=== PATIENT | female | born 1955 | race Hispanic/Latino ===

== ENCOUNTER 2021-09-10 14:04 | Outpatient (CLI) | payer MEDICAID ==
[2021-09-10 16:40] LABS: #Basophils 0.1 10x3/uL (0.0-0.2); #Eosinphils 0.3 10x3/uL (0.0-0.5); #Monocytes 0.5 10x3/uL (0.0-1.1); #Neutrophils 4.2 10x3/uL (1.5-8.4); %Basophils 0.7 % (0.0-2.0); %Eosinophils 3.9 % (0.0-6.0); %Lymphocytes 23.5 % (18.0-47.0); %Monocytes 7.5 % (0.0-10.0); %Neutrophils 63.2 % (40.0-75.0); Hemoglobin 13.4 g/dL (12.0-15.5); Mean Corpuscular HGB CONC 33.1 g/dL (32.0-36.0); Mean Corpuscular Hemoglobin 28.5 pg (27.0-33.0); Mean Corpuscular Volume 86.2 fl (81.6-98.3); Mean Platelet Volume 11.5 fl (7.4-10.4); Platelet Count 173 10x3/uL (150-450); White Blood Cell (WBC) Count 6.7 10x3/uL (3.5-10.5)
[2021-09-10 16:58] LABS: Anion Gap 17 mmol/L (10-20); BUN (Urea Nitrogen) 30 mg/dL (9.8-20.1); Calc. Creatinine Clearance 0 mL/min (70-130); Calcium 10.4 mg/dL (7.8-10.44); Carbon Dioxide 26 mmol/L (23-31); Chloride 96 mmol/L (98-107); Glucose 427 mg/dL (80-115); Potassium 4.2 mmol/L (3.5-5.1); Sodium 135 mmol/L (136-145)
[2021-09-11 00:13] LABS: SARS-CoV-2 PCR by NAA Not Detected (NotDetected)
== END 2021-09-10 14:05 | disposition home or self-care (01) ==
LOC: LABBT 14:04
PROVIDERS: ATTEND Specialist
DX: Z01.818 Encounter for other preprocedural examination (principal); C50.912 Malignant neoplasm of unspecified site of left female breast; Z20.822 Contact with and (suspected) exposure to COVID-19
CPT/HCPCS: 71046; 80048; 85025; U0003; U0005

== ENCOUNTER 2021-09-18 10:33 | Day surgery (SDC) | payer MEDICAID ==
[2021-09-08 14:08] VITALS: BMI 23.3
[2021-09-18] MEDS ORDERED: Acetaminophen 500 MG TAB ONE (11:17)
[2021-09-18] MEDS ORDERED: Lidocaine 1% MPF 2 ML VIAL ONE (11:27)
[2021-09-18] MEDS ORDERED: Ketorolac Tromethamine 30 MG/ML VIAL ONE (11:27)
[2021-09-18] MEDS ORDERED: Fentanyl 100 MCG/2 ML VIAL ONE ×2 (11:38→14:32)
[2021-09-18] MEDS ORDERED: Bupivacaine 0.25% 10 ML VIAL ONE (11:45)
[2021-09-18] MEDS ORDERED: Lidocaine 1% (PF) 30 ML VIAL ONE (11:45)
[2021-09-18] MEDS ORDERED: EPINEPHrine 1 MG/ML AMP ONE (11:45)
[2021-09-18] MEDS ORDERED: Isosulfan Blue 50 MG/5 ML VIAL ONE (12:23)
[2021-09-18] MEDS ORDERED: Methylene Blue 50 MG/10 ML AMPUL ONE (12:24)
[2021-09-18] MEDS ORDERED: Lidocaine 1% PF 5 ML VIAL ONE (13:15)
[2021-09-18] MEDS ORDERED: PROPOFOL 200 MG/20 ML VIAL ONE (13:15)
[2021-09-18] MEDS ORDERED: Ondansetron PF 4 MG/2 ML Vial ONE (13:15)
[2021-09-18] MEDS ORDERED: PHENYLEPHRINE-NS 100 MCG/ML 10 ML SYRINGE ONE (13:15)
== END 2021-09-18 16:05 | disposition home or self-care (01) ==
LOC: SDC 10:33
PROVIDERS: ATTEND Specialist
PROC: 02HV33Z Insertion of Infusion Device into Superior Vena Cava, Percutaneous Approach (ICD-10-PCS; principal; 2021-09-18)
PROC: 0JH60WZ Insertion of Totally Implantable Vascular Access Device into Chest Subcutaneous Tissue and Fascia, Open Approach (ICD-10-PCS; principal; 2021-09-18)
PROC: 07D63ZX Extraction of Left Axillary Lymphatic, Percutaneous Approach, Diagnostic (ICD-10-PCS; principal; 2021-09-18)
DX: C50.412 Malignant neoplasm of upper-outer quadrant of left female breast (principal); E78.00 Pure hypercholesterolemia, unspecified; E11.9 Type 2 diabetes mellitus without complications; I10 Essential (primary) hypertension; Z17.1 Estrogen receptor negative status [ER-]; Z79.4 Long term (current) use of insulin; Z79.83 Long term (current) use of bisphosphonates; Z79.84 Long term (current) use of oral hypoglycemic drugs; Z79.899 Other long term (current) drug therapy
CPT/HCPCS: 36416; 71045; 88305; 93005; 93010; C1788; J0171; J1642; J1885; J2001; J2405; J2704; J3010; Q9968; S0020

== ENCOUNTER 2021-12-02 12:03 | Inpatient (IN) | payer MEDICARE, MEDICAID ==
[2021-12-02 12:43] LABS: Mean Corpuscular Hemoglobin 31.2 pg (27.0-31.0); Mean Corpuscular Volume 91.9 fL (78.0-98.0); Mean Platelet Volume 7.6 fL (7.4-10.4); Platelet Count 174 thou/uL (130-400); RBC Distribution Width 18.3 % (11.5-14.5); Red Blood Cell (RBC) Count 3.51 mill/uL (4.20-5.40); White Blood Cell (WBC) Count 14.6 thou/uL (4.8-10.8)
[2021-12-02 13:02] LABS: Band 25 % (5-11); Lymphocytes 6 % (21-51); MDiff Complete? YES; Metamyelocyte 3 % (0-0); Monocytes 1 % (0-10); Neutrophil 65 % (42-75); Platelet Morphology Comment Appears Adequate; Polychromasia SLIGHT = 2-3 cells (100X) (0-2/hpf)
[2021-12-02 13:20] LABS: ALT (SGPT) 47 U/L (8-55); AST (SGOT) 47 U/L (5-34); Alkaline Phosphatase 118 U/L (40-110); Anion Gap 18 mmol/L (10-20); BUN (Urea Nitrogen) 37 mg/dL (9.8-20.1); Bilirubin, Total 0.5 mg/dL (0.2-1.2); Calc. Creatinine Clearance 0 mL/min (70-130); Calcium 8.6 mg/dL (7.8-10.44); Carbon Dioxide 14 mmol/L (23-31); Chloride 106 mmol/L (98-107); Estimated GFR 28; Globulin 2.7 g/dL (2.4-3.5); Glucose 144 mg/dL (80-115); Potassium 3.9 mmol/L (3.5-5.1); Protein, Total 6.7 g/dL (5.8-8.1); Sodium 134 mmol/L (136-145)
[2021-12-02 15:48] LABS: Bilirubin Negative (Negative); Blood, Urine Negative (Negative); Glucose, Urine (Dipstick) 30 mg/dL (Negative); Ketone, Urine Negative (Negative); Leukocyte Negative Leu/uL (Negative); Nitrite Negative (Negative); Protein, Urine (Dipstick) 10 mg/dL (Neg-Trace); Specific Gravity, Urine 1.012 (1.002-1.036); Urobilinogen Normal mg/dL (Less than 2)
[2021-12-02 15:49] LABS: Clarity Hazy (Clear)
[2021-12-02] MEDS ORDERED: Ketorolac Tromethamine 30 MG/ML VIAL ONE (16:18)
[2021-12-02] MEDS ORDERED: Acetaminophen 500 MG TAB ONE (16:19)
[2021-12-02] MEDS ORDERED: Cefepime 2 GM VIAL ONE (16:39)
[2021-12-02] MEDS ORDERED: Acetaminophen 325 MG TAB PO PRN (18:17)
[2021-12-02] MEDS ORDERED: Ondansetron PF 4 MG/2 ML Vial IVP PRN (18:17)
[2021-12-02] MEDS ORDERED: Acetaminophen 650 MG Suppository PR PRN (18:17)
[2021-12-02] MEDS ORDERED: Dextrose 5% in Water 1,000 ML IV PRN (18:22)
[2021-12-02] MEDS ORDERED: HumaLOG 300 UNITS/3 ML VIAL SC PRN (18:22)
[2021-12-02] MEDS ORDERED: Dextrose 50% Abboject 50 ML SYRINGE SLOW IVP PRN (18:22)
[2021-12-02] MEDS ORDERED: traMADol HCl 50 MG TAB PO PRN ×2 (18:25→20:15)
[2021-12-02 19:07] VITALS: BMI 19.5
[2021-12-02 19:15] LABS: SARS-CoV-2 NAA Rapid Test Not Detected (NotDetected)
[2021-12-02] MEDS ORDERED: Sodium Chloride 0.9% 500 ML IV SCH (20:15)
[2021-12-02] MEDS: Famotidine/PF 20 mg/2ml Vial SLOW IVP SCH (20:30)
[2021-12-02] MEDS: Heparin 5,000 UNITS/ML VIAL SC SCH (20:31)
[2021-12-02] MEDS: Famotidine 20 MG TAB PO SCH (20:31)
[2021-12-02] MEDS: Sodium Chloride 0.9% 1,000 ML IV SCH (22:00)
[2021-12-03] MEDS ORDERED: Cefepime 1 GM in Sodium Chloride 0.9% 100 ML IVPB SCH (06:00)
[2021-12-03] MEDS ORDERED: Cefepime 2 MG in Syringe 0 ML IVPB SCH (06:00)
[2021-12-03 06:02] LABS: #Lymphocytes 1.3 thou/uL (1.20-3.40); #Monocytes 0.6 thou/uL (0.11-0.59); #Neutrophils 12.7 thou/uL (1.40-6.50); %Basophils 0.1 % (0.0-1.0); %Eosinophils 0.1 % (0.0-10.0); %Monocytes 4.4 % (0.0-10.0); %Neutrophils 86.4 % (42.0-75.0); Mean Corpuscular HGB CONC 34.4 g/dL (32.0-36.0); Mean Corpuscular Hemoglobin 31.5 pg (27.0-31.0); Mean Corpuscular Volume 91.6 fL (78.0-98.0); Mean Platelet Volume 7.5 fL (7.4-10.4); Platelet Count 142 thou/uL (130-400); RBC Distribution Width 18.7 % (11.5-14.5); Red Blood Cell (RBC) Count 2.84 mill/uL (4.20-5.40); White Blood Cell (WBC) Count 14.7 thou/uL (4.8-10.8)
[2021-12-03 06:07] LABS: ALT (SGPT) 41 U/L (8-55); AST (SGOT) 32 U/L (5-34); Albumin 3.2 g/dL (3.4-4.8); Alkaline Phosphatase 110 U/L (40-110); Anion Gap 12 mmol/L (10-20); BUN (Urea Nitrogen) 28 mg/dL (9.8-20.1); Bilirubin, Total 0.2 mg/dL (0.2-1.2); Calc. Creatinine Clearance 29 mL/min (70-130); Calcium 7.8 mg/dL (7.8-10.44); Carbon Dioxide 14 mmol/L (23-31); Chloride 115 mmol/L (98-107); Estimated GFR 43; Globulin 2.1 g/dL (2.4-3.5); Glucose 173 mg/dL (80-115); Protein, Total 5.3 g/dL (5.8-8.1); Sodium 138 mmol/L (136-145)
[2021-12-03 06:13] LABS: Potassium 2.9 mmol/L (3.5-5.1)
[2021-12-03] MEDS: Potassium Chloride 20 MEQ TAB PO SCH ×2 (06:31→09:46)
[2021-12-03] MEDS: Heparin 5,000 UNITS/ML VIAL SC SCH ×2 (09:48→20:24)
[2021-12-03] MEDS: Ondansetron ODT 4 MG TAB PO PRN ×2 (09:51→17:48)
[2021-12-03] MEDS: Sodium Chloride 0.9% 1,000 ML IV SCH (12:37)
[2021-12-03] MEDS ORDERED: Piperacillin/Tazobactam 3.375 GM in Sodium Chloride 0.9% 100 ML IVPB SCH (17:15)
[2021-12-03 17:43] LABS: Anion Gap 14 mmol/L (10-20); BUN (Urea Nitrogen) 17 mg/dL (9.8-20.1); Calc. Creatinine Clearance 30 mL/min (70-130); Calcium 7.9 mg/dL (7.8-10.44); Carbon Dioxide 14 mmol/L (23-31); Chloride 114 mmol/L (98-107); Estimated GFR 46; Glucose 222 mg/dL (80-115); Potassium 3.6 mmol/L (3.5-5.1); Sodium 138 mmol/L (136-145)
[2021-12-03] MEDS: Famotidine/PF 20 mg/2ml Vial SLOW IVP SCH (20:24)
[2021-12-03] MEDS: Piperacillin/Tazobactam 3.375 GM in Sodium Chloride 0.9% 100 ML IVPB SCH (20:24)
[2021-12-03] MEDS: Famotidine 20 MG TAB PO SCH (20:30)
[2021-12-04] MEDS: Sodium Chloride 0.9% 1,000 ML IV SCH (02:02)
[2021-12-04] MEDS: Piperacillin/Tazobactam 3.375 GM in Sodium Chloride 0.9% 100 ML IVPB SCH ×3 (04:55→20:40)
[2021-12-04] MEDS: Loperamide HCl 2 MG CAP PO PRN ×3 (05:02→20:39)
[2021-12-04 09:38] LABS: Hemoglobin 10.3 g/dL (12.0-16.0); Mean Corpuscular HGB CONC 34.3 g/dL (32.0-36.0); Mean Corpuscular Hemoglobin 31.7 pg (27.0-31.0); Mean Corpuscular Volume 92.6 fL (78.0-98.0); Mean Platelet Volume 7.3 fL (7.4-10.4); Platelet Count 136 thou/uL (130-400); RBC Distribution Width 19.5 % (11.5-14.5); Red Blood Cell (RBC) Count 3.26 mill/uL (4.20-5.40); White Blood Cell (WBC) Count 13.5 thou/uL (4.8-10.8)
[2021-12-04 09:56] LABS: Anion Gap 13 mmol/L (10-20); BUN (Urea Nitrogen) 12 mg/dL (9.8-20.1); Calc. Creatinine Clearance 28 mL/min (70-130); Carbon Dioxide 13 mmol/L (23-31); Chloride 116 mmol/L (98-107); Estimated GFR 42; Glucose 188 mg/dL (80-115); Potassium 3.4 mmol/L (3.5-5.1); Sodium 139 mmol/L (136-145)
[2021-12-04 09:58] LABS: Band 23 % (5-11); Lymphocytes 9 % (21-51); MDiff Complete? YES; Monocytes 5 % (0-10); Myelocyte 1 % (0-0); Neutrophil 62 % (42-75); Platelet Morphology Comment Appears Adequate; Polychromasia SLIGHT = 2-3 cells (100X) (0-2/hpf); Toxic Granulation SLIGHT
[2021-12-04] MEDS: Heparin 5,000 UNITS/ML VIAL SC SCH ×2 (11:25→20:43)
[2021-12-04] MEDS: Mupirocin 2% Ointment 22 GM Tube TOP SCH (11:25)
[2021-12-04] MEDS: Sodium Chloride 0.45% 1,000 ML IV SCH (16:53)
[2021-12-04] MEDS: Famotidine 20 MG TAB PO SCH (20:39)
[2021-12-04] MEDS: Famotidine/PF 20 mg/2ml Vial SLOW IVP SCH (20:43)
[2021-12-05] MEDS: Sodium Chloride 0.45% 1,000 ML IV SCH (00:37)
[2021-12-05] MEDS: Piperacillin/Tazobactam 3.375 GM in Sodium Chloride 0.9% 100 ML IVPB SCH (04:51)
[2021-12-05 06:57] LABS: #Lymphocytes 1.8 thou/uL (1.20-3.40); #Monocytes 0.5 thou/uL (0.11-0.59); #Neutrophils 6.9 thou/uL (1.40-6.50); %Basophils 0.2 % (0.0-1.0); %Lymphocytes 19.3 % (21.0-51.0); %Monocytes 5.6 % (0.0-10.0); %Neutrophils 74.8 % (42.0-75.0); Hemoglobin 8.9 g/dL (12.0-16.0); Mean Corpuscular HGB CONC 34.1 g/dL (32.0-36.0); Mean Corpuscular Hemoglobin 32.6 pg (27.0-31.0); Mean Corpuscular Volume 95.5 fL (78.0-98.0); Mean Platelet Volume 7.4 fL (7.4-10.4); Platelet Count 118 thou/uL (130-400); RBC Distribution Width 19.9 % (11.5-14.5); Red Blood Cell (RBC) Count 2.73 mill/uL (4.20-5.40); White Blood Cell (WBC) Count 9.2 thou/uL (4.8-10.8)
[2021-12-05 07:16] LABS: Anion Gap 12 mmol/L (10-20); BUN (Urea Nitrogen) 8 mg/dL (9.8-20.1); Calc. Creatinine Clearance 35 mL/min (70-130); Carbon Dioxide 15 mmol/L (23-31); Chloride 116 mmol/L (98-107); Estimated GFR 55; Glucose 104 mg/dL (80-115); Sodium 140 mmol/L (136-145)
[2021-12-05 07:20] LABS: Potassium 2.7 mmol/L (3.5-5.1)
[2021-12-05] MEDS ORDERED: Electrolyte Replacement Protocol 1 EACH FS SCH (08:00)
[2021-12-05] MEDS ORDERED: Electrolyte Replacement Protocol FS PRN (08:15)
[2021-12-05] MEDS ORDERED: Magnesium Sulfate In Water 4 GM in Premix Bag 1 BAG IVPB SCH (08:45)
[2021-12-05] MEDS ORDERED: Potassium Chloride 20 MEQ TAB PO SCH ×2 (09:00→15:30)
[2021-12-05] MEDS: Heparin 5,000 UNITS/ML VIAL SC SCH ×2 (09:11→20:49)
[2021-12-05] MEDS: Potassium Chloride 20 MEQ TAB PO SCH ×2 (10:21→15:37)
[2021-12-05] MEDS: PHOS-NAK 1 PKT PACK PO SCH ×2 (10:22→15:36)
[2021-12-05] MEDS: Mupirocin 2% Ointment 22 GM Tube TOP SCH (10:22)
[2021-12-05] MEDS ORDERED: Non-Formulary Item 1 EACH (Megestrol Acetate [Megestrol Acetate] 400 MG/10 ML Oral.Susp) PO SCH (11:00)
[2021-12-05] MEDS: Megestrol Acetate 800 MG/20 ML UDCUP PO SCH (11:43)
[2021-12-05] MEDS: Potassium Chloride 40 MEQ in Sodium Chloride 0.45% 1,000 ML IV SCH (11:43)
[2021-12-05] MEDS: HumaLOG 300 UNITS/3 ML VIAL SC PRN ×2 (12:48→18:02)
[2021-12-05] MEDS ORDERED: PHOS-NAK 1 PKT PACK PO SCH (15:30)
[2021-12-05] MEDS: Loperamide HCl 2 MG CAP PO PRN (18:03)
[2021-12-05] MEDS: Multivit, Therapeutic 1 TAB PO SCH (20:45)
[2021-12-05] MEDS: Ondansetron ODT 4 MG TAB PO PRN (20:45)
[2021-12-05] MEDS: Famotidine 20 MG TAB PO SCH (20:45)
[2021-12-05] MEDS: Famotidine/PF 20 mg/2ml Vial SLOW IVP SCH (20:50)
[2021-12-05] MEDS ORDERED: cefTRIAXone\\ROCEPHIN 1 GM in Sodium Chloride 0.9% 100 ML IVPB SCH (21:00)
[2021-12-06] MEDS: Potassium Chloride 40 MEQ in Sodium Chloride 0.45% 1,000 ML IV SCH (01:08)
[2021-12-06 06:46] LABS: #Lymphocytes 1.7 thou/uL (1.20-3.40); #Monocytes 0.6 thou/uL (0.11-0.59); #Neutrophils 9.4 thou/uL (1.40-6.50); %Basophils 0.1 % (0.0-1.0); %Eosinophils 0.3 % (0.0-10.0); %Lymphocytes 14.8 % (21.0-51.0); %Monocytes 4.9 % (0.0-10.0); Hemoglobin 9.3 g/dL (12.0-16.0); Mean Corpuscular Hemoglobin 33.4 pg (27.0-31.0); Mean Corpuscular Volume 92.7 fL (78.0-98.0); Platelet Count 102 thou/uL (130-400); Red Blood Cell (RBC) Count 2.78 mill/uL (4.20-5.40); White Blood Cell (WBC) Count 11.8 thou/uL (4.8-10.8)
[2021-12-06 07:18] LABS: Anion Gap 13 mmol/L (10-20); BUN (Urea Nitrogen) 10 mg/dL (9.8-20.1); Calc. Creatinine Clearance 45 mL/min (70-130); Calcium 6.9 mg/dL (7.8-10.44); Carbon Dioxide 13 mmol/L (23-31); Chloride 114 mmol/L (98-107); Estimated GFR 74; Glucose 160 mg/dL (80-115); Magnesium 1.6 mg/dL (1.6-2.6); Potassium 4.7 mmol/L (3.5-5.1); Sodium 135 mmol/L (136-145)
[2021-12-06 07:45] LABS: Phosphorus Less than 1.0 mg/dL (2.3-4.7)
[2021-12-06] MEDS: Heparin 5,000 UNITS/ML VIAL SC SCH ×2 (08:19→21:18)
[2021-12-06] MEDS: Mupirocin 2% Ointment 22 GM Tube TOP SCH (08:24)
[2021-12-06] MEDS ORDERED: Magnesium 2 GM/50 ML(in water) 2 GM in Premix Bag 1 BAG IVPB SCH (09:00)
[2021-12-06] MEDS: Megestrol Acetate 800 MG/20 ML UDCUP PO SCH (12:14)
[2021-12-06] MEDS ORDERED: Cosyntropin 250 MCG VIAL SLOW IVP SCH (13:45)
[2021-12-06] MEDS ORDERED: Sodium Phosphate 30 MMOL in Sodium Chloride 0.9% 250 ML 250 ML IVPB SCH (15:00)
[2021-12-06] MEDS: HumaLOG 300 UNITS/3 ML VIAL SC PRN (17:08)
[2021-12-06] MEDS ORDERED: Triple Antibiotic Oint 1 GM Packet TOP SCH (21:00)
[2021-12-06] MEDS: Famotidine 20 MG TAB PO SCH (21:17)
[2021-12-06] MEDS: Multivit, Therapeutic 1 TAB PO SCH (21:17)
[2021-12-07] MEDS: Heparin 5,000 UNITS/ML VIAL SC SCH ×2 (08:08→20:57)
[2021-12-07 10:54] LABS: #Lymphocytes 1.7 thou/uL (1.20-3.40); #Monocytes 0.6 thou/uL (0.11-0.59); #Neutrophils 7.4 thou/uL (1.40-6.50); %Basophils 0.2 % (0.0-1.0); %Eosinophils 0.4 % (0.0-10.0); %Lymphocytes 17.3 % (21.0-51.0); %Neutrophils 76.1 % (42.0-75.0); Hemoglobin 8.4 g/dL (12.0-16.0); Mean Corpuscular HGB CONC 33.9 g/dL (32.0-36.0); Mean Corpuscular Hemoglobin 31.9 pg (27.0-31.0); Mean Platelet Volume 7.9 fL (7.4-10.4); Platelet Count 111 thou/uL (130-400); RBC Distribution Width 19.9 % (11.5-14.5); Red Blood Cell (RBC) Count 2.64 mill/uL (4.20-5.40); White Blood Cell (WBC) Count 9.7 thou/uL (4.8-10.8)
[2021-12-07 11:06] LABS: Anion Gap 12 mmol/L (10-20); BUN (Urea Nitrogen) 8 mg/dL (9.8-20.1); Calc. Creatinine Clearance 48 mL/min (70-130); Calcium 6.8 mg/dL (7.8-10.44); Carbon Dioxide 19 mmol/L (23-31); Chloride 112 mmol/L (98-107); Estimated GFR 79; Glucose 246 mg/dL (80-115); Magnesium 1.3 mg/dL (1.6-2.6); Potassium 3.1 mmol/L (3.5-5.1); Sodium 140 mmol/L (136-145)
[2021-12-07 11:10] LABS: Phosphorus 1.2 mg/dL (2.3-4.7)
[2021-12-07] MEDS: Mupirocin 2% Ointment 22 GM Tube TOP SCH (11:23)
[2021-12-07] MEDS ORDERED: Magnesium Sulfate 4 GM in Sodium Chloride 0.9% 250 ML 250 ML IVPB SCH (11:30)
[2021-12-07] MEDS ORDERED: Magnesium Sulfate In Water 4 GM in Premix Bag 1 BAG IVPB SCH (12:15)
[2021-12-07] MEDS: Megestrol Acetate 800 MG/20 ML UDCUP PO SCH (12:32)
[2021-12-07] MEDS: K-Phos Neutral 250 MG TAB PO SCH ×2 (12:33→17:13)
[2021-12-07] MEDS: HumaLOG 300 UNITS/3 ML VIAL SC PRN ×2 (13:04→17:12)
[2021-12-07] MEDS: Multivit, Therapeutic 1 TAB PO SCH (20:56)
[2021-12-07] MEDS: Famotidine 20 MG TAB PO SCH (20:56)
[2021-12-07] MEDS ORDERED: Cholecalciferol 1,000 UNITS (25 MCG) TAB PO SCH (21:00)
[2021-12-08 07:33] LABS: #Monocytes 0.5 thou/uL (0.11-0.59); #Neutrophils 6.9 thou/uL (1.40-6.50); %Basophils 0.2 % (0.0-1.0); %Eosinophils 0.4 % (0.0-10.0); %Lymphocytes 20.9 % (21.0-51.0); %Neutrophils 73.5 % (42.0-75.0); Hemoglobin 8.5 g/dL (12.0-16.0); Mean Corpuscular HGB CONC 34.4 g/dL (32.0-36.0); Mean Corpuscular Hemoglobin 32.6 pg (27.0-31.0); Mean Corpuscular Volume 94.8 fL (78.0-98.0); Mean Platelet Volume 7.6 fL (7.4-10.4); Platelet Count 103 thou/uL (130-400); RBC Distribution Width 20.5 % (11.5-14.5); Red Blood Cell (RBC) Count 2.61 mill/uL (4.20-5.40); White Blood Cell (WBC) Count 9.4 thou/uL (4.8-10.8)
[2021-12-08 07:56] LABS: Phosphorus 1.7 mg/dL (2.3-4.7)
[2021-12-08 08:00] VITALS: TEMP 97.5
[2021-12-08 08:01] LABS: Anion Gap 14 mmol/L (10-20); BUN (Urea Nitrogen) 7 mg/dL (9.8-20.1); Calc. Creatinine Clearance 52 mL/min (70-130); Calcium 6.8 mg/dL (7.8-10.44); Carbon Dioxide 19 mmol/L (23-31); Chloride 113 mmol/L (98-107); Estimated GFR 88; Glucose 159 mg/dL (80-115); Magnesium 1.6 mg/dL (1.6-2.6); Potassium 3.4 mmol/L (3.5-5.1); Sodium 143 mmol/L (136-145)
[2021-12-08] MEDS: Heparin 5,000 UNITS/ML VIAL SC SCH (08:34)
[2021-12-08] MEDS: K-Phos Neutral 250 MG TAB PO SCH ×3 (08:34→16:27)
[2021-12-08] MEDS: Mupirocin 2% Ointment 22 GM Tube TOP SCH (08:36)
[2021-12-08] MEDS ORDERED: Magnesium Sulfate 4 GM in Sodium Chloride 0.9% 250 ML 250 ML IVPB SCH (09:30)
[2021-12-08] MEDS ORDERED: Magnesium Sulfate In Water 4 GM in Premix Bag 1 BAG IVPB SCH (09:30)
[2021-12-08] MEDS: Megestrol Acetate 800 MG/20 ML UDCUP PO SCH (12:08)
[2021-12-08] MEDS: HumaLOG 300 UNITS/3 ML VIAL SC PRN (12:10)
[2021-12-08 16:43] VITALS: BP 134/73
== END 2021-12-08 16:40 | disposition home health service (06) | DRG 683 ==
LOC: ERS 12:03 → MSONC 17:07 → T4-A 18:45 → OBSVTOIN 12-03 17:07
PROVIDERS: ADMIT Internal Medicine; ATTEND Internal Medicine
DX: N17.9 Acute kidney failure, unspecified (principal); Z20.822 Contact with and (suspected) exposure to COVID-19; E44.0 Moderate protein-calorie malnutrition; Z68.1 Body mass index [BMI] 19.9 or less, adult; K52.1 Toxic gastroenteritis and colitis; C79.51 Secondary malignant neoplasm of bone; E87.2 Acidosis; E27.40 Unspecified adrenocortical insufficiency; E86.0 Dehydration; N18.30 Chronic kidney disease, stage 3 unspecified; E87.6 Hypokalemia; E83.39 Other disorders of phosphorus metabolism; E11.22 Type 2 diabetes mellitus with diabetic chronic kidney disease; D64.9 Anemia, unspecified; D69.6 Thrombocytopenia, unspecified; R11.2 Nausea with vomiting, unspecified; T45.1X5A Adverse effect of antineoplastic and immunosuppressive drugs, initial encounter; D72.829 Elevated white blood cell count, unspecified; C50.919 Malignant neoplasm of unspecified site of unspecified female breast; Z60.2 Problems related to living alone; R79.89 Other specified abnormal findings of blood chemistry; E86.9 Volume depletion, unspecified; E83.42 Hypomagnesemia; Z82.49 Family history of ischemic heart disease and other diseases of the circulatory system; Z83.3 Family history of diabetes mellitus; Z80.0 Family history of malignant neoplasm of digestive organs; Z91.013 Allergy to seafood; Z79.899 Other long term (current) drug therapy
CPT/HCPCS: 36415; 36416; 51701; 70450; 71045; 80048; 80053; 80400; 81003; 82533; 83605; 83735; 84100; 84484; 85025; 85379; 87040; 87086; 93005; 93970; 96365; 96366; 96375; 97139; G0378; J0692; J0834; J1642; J1644; J1815; J1885; J2405; J2543; J3475; J3480; J3490; J7030; J7050; Q0162; S0028; U0002

== ENCOUNTER 2021-12-17 12:51 | Outpatient (CLI) | payer MEDICARE, OTHER | END 2021-12-17 12:52 | disposition home or self-care (01) | LOC: SCSMRI 12:51 | PROVIDERS: ATTEND Internal Medicine Hematology & Oncology | DX: R26.89 Other abnormalities of gait and mobility (principal); C50.412 Malignant neoplasm of upper-outer quadrant of left female breast; M21.2 Flexion deformity; M51.26 Other intervertebral disc displacement, lumbar region; M51.87 Other intervertebral disc disorders, lumbosacral region | CPT/HCPCS: 72158 ==

== ENCOUNTER 2022-01-16 07:33 | Inpatient (IN) | payer MEDICARE, MEDICAID ==
[2022-01-16] MEDS ORDERED: Ondansetron PF 4 MG/2 ML Vial ONE (08:03)
[2022-01-16 08:31] LABS: ALT (SGPT) 21 U/L (8-55); AST (SGOT) 29 U/L (5-34); Albumin 4.5 g/dL (3.4-4.8); Alkaline Phosphatase 100 U/L (40-110); Anion Gap 21 mmol/L (10-20); BUN (Urea Nitrogen) 27 mg/dL (9.8-20.1); Bilirubin, Total 0.5 mg/dL (0.2-1.2); Calc. Creatinine Clearance 0 mL/min (70-130); Calcium 8.5 mg/dL (7.8-10.44); Carbon Dioxide 11 mmol/L (23-31); Chloride 105 mmol/L (98-107); Estimated GFR 28; Globulin 3.6 g/dL (2.4-3.5); Glucose 339 mg/dL (80-115); Lipase 29 U/L (8-78); Magnesium 0.8 mg/dL (1.6-2.6); Potassium 3.7 mmol/L (3.5-5.1); Protein, Total 8.1 g/dL (5.8-8.1); Sodium 133 mmol/L (136-145)
[2022-01-16 08:35] LABS: Bilirubin Negative (Negative); Blood, Urine 1+ (Negative); Clarity Turbid (Clear); Glucose, Urine (Dipstick) 500 mg/dL (Negative); Ketone, Urine Trace mg/dL (Negative); Leukocyte Negative Leu/uL (Negative); Nitrite Negative (Negative); Protein, Urine (Dipstick) 100 mg/dL (Neg-Trace); RBC/HPF 0-3 HPF (0-3); Specific Gravity, Urine 1.023 (1.002-1.036); Squamous Epithelial None Seen HPF (0-3); Urobilinogen Normal mg/dL (Less than 2)
[2022-01-16 08:36] LABS: Bacteria/HPF 1+ HPF (None Seen)
[2022-01-16 08:39] LABS: Band 17 % (5-11); Hemoglobin 11.5 g/dL (12.0-16.0); Lymphocytes 21 % (21-51); MDiff Complete? YES; Mean Corpuscular HGB CONC 33.2 g/dL (32.0-36.0); Mean Corpuscular Hemoglobin 33.1 pg (27.0-31.0); Mean Corpuscular Volume 99.5 fL (78.0-98.0); Mean Platelet Volume 8.7 fL (7.4-10.4); Metamyelocyte 1 % (0-0); Monocytes 7 % (0-10); Myelocyte 2 % (0-0); Neutrophil 52 % (42-75); Platelet Count 135 thou/uL (130-400); Platelet Morphology Comment Appears Adequate; RBC Distribution Width 15.1 % (11.5-14.5); Red Blood Cell (RBC) Count 3.48 mill/uL (4.20-5.40); Toxic Granulation SLIGHT; White Blood Cell (WBC) Count 12.1 thou/uL (4.8-10.8)
[2022-01-16] MEDS ORDERED: Magnesium 2 GM/50 ML BAG (IN WATER) ONE (09:10)
[2022-01-16] MEDS ORDERED: cefTRIAXone\\ROCEPHIN 2 GM VIAL ONE (09:56)
[2022-01-16] MEDS ORDERED: Vancomycin 1 GM/200 ML BAG ONE (09:56)
[2022-01-16 12:34] LABS: Lactic Acid 2.3 mmol/L (0.5-2.2)
[2022-01-16] MEDS ORDERED: Acetaminophen 325 MG TAB PO PRN (13:06)
[2022-01-16] MEDS ORDERED: Dextrose 50% Abboject 50 ML SYRINGE SLOW IVP PRN (13:06)
[2022-01-16] MEDS ORDERED: HYDROcodone/Acetaminophen 5/325 mg Tablet PO PRN (13:06)
[2022-01-16] MEDS ORDERED: Dextrose 5% in Water 1,000 ML IV PRN (13:06)
[2022-01-16] MEDS ORDERED: Ondansetron PF 4 MG/2 ML Vial IVP PRN (13:06)
[2022-01-16] MEDS ORDERED: Guaifenesin DM 100-10/5 ML UDCUP PO PRN (13:06)
[2022-01-16] MEDS ORDERED: Mirtazapine 15 MG Soltab PO PRN (13:06)
[2022-01-16 13:10] VITALS: BMI 21.4
[2022-01-16] MEDS: Sodium Chloride 0.9% 1,000 ML IV SCH (13:35)
[2022-01-16] MEDS: metroNIDAZOLE 250 MG in Admixture Fee 1 EACH IVPB SCH ×2 (15:04→22:32)
[2022-01-16] MEDS: Ciprofloxacin Lactate/D5W 200 MG in Premix Bag 1 BAG IVPB SCH (16:45)
[2022-01-16] MEDS: HumaLOG 300 UNITS/3 ML VIAL SC PRN ×2 (18:14→22:32)
[2022-01-16] MEDS: Gabapentin 300 MG CAP PO SCH (21:03)
[2022-01-16 23:37] LABS: SARS-CoV-2 NAA Rapid Test Not Detected (NotDetected)
[2022-01-17] MEDS: Ciprofloxacin Lactate/D5W 200 MG in Premix Bag 1 BAG IVPB SCH ×2 (02:48→15:12)
[2022-01-17] MEDS: Sodium Chloride 0.9% 1,000 ML IV SCH (04:52)
[2022-01-17 06:45] LABS: #Basophils 0.1 thou/uL (0.0-0.2); #Lymphocytes 1.3 thou/uL (1.20-3.40); #Monocytes 0.5 thou/uL (0.11-0.59); #Neutrophils 5.7 thou/uL (1.40-6.50); %Basophils 0.7 % (0.0-1.0); %Eosinophils 0.1 % (0.0-10.0); %Lymphocytes 17.1 % (21.0-51.0); %Monocytes 7.1 % (0.0-10.0); Hemoglobin 8.7 g/dL (12.0-16.0); Mean Corpuscular HGB CONC 33.5 g/dL (32.0-36.0); Mean Corpuscular Hemoglobin 33.4 pg (27.0-31.0); Mean Corpuscular Volume 99.7 fL (78.0-98.0); Mean Platelet Volume 8.2 fL (7.4-10.4); Platelet Count 120 thou/uL (130-400); RBC Distribution Width 14.9 % (11.5-14.5); Red Blood Cell (RBC) Count 2.59 mill/uL (4.20-5.40); White Blood Cell (WBC) Count 7.6 thou/uL (4.8-10.8)
[2022-01-17] MEDS: metroNIDAZOLE 250 MG in Admixture Fee 1 EACH IVPB SCH ×3 (06:45→21:55)
[2022-01-17 07:29] LABS: Calcium 6.7 mg/dL (7.8-10.44)
[2022-01-17 07:30] LABS: ALT (SGPT) 17 U/L (8-55); AST (SGOT) 18 U/L (5-34); Albumin 3.3 g/dL (3.4-4.8); Alkaline Phosphatase 70 U/L (40-110); Anion Gap 14 mmol/L (10-20); BUN (Urea Nitrogen) 12 mg/dL (9.8-20.1); Bilirubin, Total 0.3 mg/dL (0.2-1.2); Calc. Creatinine Clearance 41 mL/min (70-130); Carbon Dioxide 15 mmol/L (23-31); Chloride 113 mmol/L (98-107); Estimated GFR 59; Globulin 2.3 g/dL (2.4-3.5); Glucose 147 mg/dL (80-115); Potassium 2.9 mmol/L (3.5-5.1); Protein, Total 5.6 g/dL (5.8-8.1); Sodium 139 mmol/L (136-145)
[2022-01-17 07:45] LABS: Magnesium 1.1 mg/dL (1.6-2.6)
[2022-01-17 07:49] LABS: Phosphorus 1.9 mg/dL (2.3-4.7)
[2022-01-17] MEDS ORDERED: Electrolyte Replacement Protocol 1 EACH FS SCH (08:15)
[2022-01-17] MEDS ORDERED: Magnesium Sulfate In Water 4 GM in Premix Bag 1 BAG IVPB SCH (08:15)
[2022-01-17] MEDS ORDERED: D5 1/2 NS w/20 mEq KCL 1,000 ML IV SCH (09:15)
[2022-01-17] MEDS: Megestrol Acetate 800 MG/20 ML UDCUP PO SCH (10:00)
[2022-01-17] MEDS: Potassium Chloride 20 MEQ TAB PO SCH ×2 (10:00→12:43)
[2022-01-17] MEDS: Enoxaparin Sodium 30 MG/0.3 ML SYRINGE SC SCH (10:00)
[2022-01-17] MEDS: PHOS-NAK 1 PKT PACK PO SCH ×2 (10:01→12:43)
[2022-01-17] MEDS: HumaLOG 300 UNITS/3 ML VIAL SC PRN ×2 (10:54→16:11)
[2022-01-17 16:07] LABS: Campy jejuni + coli by PCR Negative (Negative); STEC Shiga Toxin 1+2 Negative (Negative); Salmonella spp. by PCR Negative (Negative); Shigella spp + EIEC by PCR Negative (Negative)
[2022-01-17 18:57] LABS: Phosphorus Less than 1.0 mg/dL (2.3-4.7)
[2022-01-17] MEDS ORDERED: Potassium Phosphate 30 MMOL in Sodium Chloride 0.9% 250 ML 250 ML IVPB SCH (19:15)
[2022-01-17] MEDS: Gabapentin 300 MG CAP PO SCH (21:09)
[2022-01-17] MEDS ORDERED: Magnesium 2 GM/50 ML(in water) 2 GM in Premix Bag 1 BAG IVPB SCH (22:30)
[2022-01-18 02:34] LABS: #Lymphocytes 1.2 thou/uL (1.20-3.40); #Monocytes 0.5 thou/uL (0.11-0.59); #Neutrophils 8.3 thou/uL (1.40-6.50); %Basophils 0.1 % (0.0-1.0); %Eosinophils 0.3 % (0.0-10.0); %Lymphocytes 12.1 % (21.0-51.0); %Monocytes 5.2 % (0.0-10.0); %Neutrophils 82.3 % (42.0-75.0); Hemoglobin 9.2 g/dL (12.0-16.0); Mean Corpuscular HGB CONC 35.3 g/dL (32.0-36.0); Mean Corpuscular Hemoglobin 35.9 pg (27.0-31.0); Mean Platelet Volume 8.3 fL (7.4-10.4); Platelet Count 106 thou/uL (130-400); RBC Distribution Width 14.8 % (11.5-14.5); Red Blood Cell (RBC) Count 2.55 mill/uL (4.20-5.40)
[2022-01-18 02:48] LABS: Phosphorus 2.9 mg/dL (2.3-4.7)
[2022-01-18 02:49] LABS: Anion Gap 17 mmol/L (10-20); BUN (Urea Nitrogen) 13 mg/dL (9.8-20.1); Calc. Creatinine Clearance 42 mL/min (70-130); Carbon Dioxide 14 mmol/L (23-31); Chloride 110 mmol/L (98-107); Estimated GFR 61; Glucose 329 mg/dL (80-115); Magnesium 2.5 mg/dL (1.6-2.6); Phosphorus 3.1 mg/dL (2.3-4.7); Potassium 3.9 mmol/L (3.5-5.1); Sodium 137 mmol/L (136-145)
[2022-01-18 03:16] LABS: Anisocytosis SLIGHT = 6-15 cells (100X) (0-5/hpf); MDiff Complete? YES; Macrocytosis SLIGHT = 6-15 cells (100X) (0-5/hpf); Ovalocytes SLIGHT = 2-5 cells (100X) (0-1/hpf); Platelet Morphology Comment Appears Decreased; Tear Drops SLIGHT = 2-5 cells (100X) (0-1/hpf)
[2022-01-18] MEDS: Ciprofloxacin Lactate/D5W 200 MG in Premix Bag 1 BAG IVPB SCH (03:23)
[2022-01-18] MEDS: HumaLOG 300 UNITS/3 ML VIAL SC PRN ×2 (06:18→11:10)
[2022-01-18] MEDS: metroNIDAZOLE 250 MG in Admixture Fee 1 EACH IVPB SCH (06:19)
[2022-01-18 08:29] VITALS: BP 124/68; TEMP 97.6
[2022-01-18] MEDS: Megestrol Acetate 800 MG/20 ML UDCUP PO SCH (08:38)
[2022-01-18] MEDS: Enoxaparin Sodium 30 MG/0.3 ML SYRINGE SC SCH (08:38)
== END 2022-01-18 15:12 | disposition home or self-care (01) | DRG 394 ==
LOC: ERS 07:33 → ERHOLD 11:16 → MSONC 12:56
PROVIDERS: ADMIT Family Medicine; ATTEND Family Medicine
DX: K52.1 Toxic gastroenteritis and colitis (principal); E87.2 Acidosis; N17.9 Acute kidney failure, unspecified; T45.1X5A Adverse effect of antineoplastic and immunosuppressive drugs, initial encounter; K52.9 Noninfective gastroenteritis and colitis, unspecified; Z20.822 Contact with and (suspected) exposure to COVID-19; K21.9 Gastro-esophageal reflux disease without esophagitis; E78.00 Pure hypercholesterolemia, unspecified; C50.912 Malignant neoplasm of unspecified site of left female breast; E83.42 Hypomagnesemia; E11.65 Type 2 diabetes mellitus with hyperglycemia; E86.0 Dehydration; E87.6 Hypokalemia; E83.39 Other disorders of phosphorus metabolism; D69.6 Thrombocytopenia, unspecified; D64.9 Anemia, unspecified; Z98.890 Other specified postprocedural states; Z79.899 Other long term (current) drug therapy
CPT/HCPCS: 36415; 36416; 51701; 71045; 80048; 80053; 81003; 81015; 83605; 83690; 83735; 84100; 84484; 85025; 87040; 87324; 87449; 87505; 93005; 96365; 96367; 96375; J0696; J0744; J1650; J1815; J2405; J3370; J3475; J3480; J7050; U0002

== ENCOUNTER 2022-01-28 12:34 | Outpatient (CLI) | payer MEDICARE, OTHER ==
[2022-01-28 13:40] LABS: #Basophils 0.1 10x3/uL (0.0-0.2); #Eosinphils 0.1 10x3/uL (0.0-0.5); #Monocytes 0.6 10x3/uL (0.0-1.1); #Neutrophils 6.4 10x3/uL (1.5-8.4); %Basophils 0.8 % (0.0-2.0); %Eosinophils 0.6 % (0.0-6.0); %Monocytes 6.7 % (0.0-10.0); %Neutrophils 68.4 % (40.0-75.0); Hemoglobin 9.4 g/dL (12.0-15.5); Mean Corpuscular HGB CONC 31.9 g/dL (32.0-36.0); Mean Corpuscular Hemoglobin 32.4 pg (27.0-33.0); Mean Corpuscular Volume 101.7 fl (81.6-98.3); Mean Platelet Volume 10.1 fl (7.4-10.4); Platelet Count 218 10x3/uL (150-450); RBC Distribution Width 15.2 % (11.5-14.5); White Blood Cell (WBC) Count 9.4 10x3/uL (3.5-10.5)
[2022-01-28 14:04] LABS: Anion Gap 16 mmol/L (10-20); BUN (Urea Nitrogen) 22 mg/dL (9.8-20.1); Calc. Creatinine Clearance 0 mL/min (70-130); Calcium 8.7 mg/dL (7.8-10.44); Carbon Dioxide 15 mmol/L (23-31); Chloride 110 mmol/L (98-107); Estimated GFR 47; Glucose 176 mg/dL (80-115); Potassium 3.7 mmol/L (3.5-5.1); Sodium 137 mmol/L (136-145)
== END 2022-01-28 12:35 | disposition home or self-care (01) ==
LOC: LABBT 12:34
PROVIDERS: ATTEND Specialist
DX: Z01.818 Encounter for other preprocedural examination (principal); C50.412 Malignant neoplasm of upper-outer quadrant of left female breast; Z20.822 Contact with and (suspected) exposure to COVID-19
CPT/HCPCS: 80048; 85025; 87811; 93005; 93010

== ENCOUNTER 2022-01-30 08:31 | Observation (INO) | payer MEDICARE, MEDICAID ==
[2022-01-30] MEDS ORDERED: Ondansetron PF 4 MG/2 ML Vial IVP PRN (14:47)
[2022-01-30] MEDS ORDERED: Dextrose 5% in Water 1,000 ML IV PRN (14:50)
[2022-01-30] MEDS ORDERED: Dextrose 50% Abboject 50 ML SYRINGE SLOW IVP PRN (14:50)
[2022-01-30] MEDS ORDERED: Sodium Chloride 0.9% 1,000 ML IV SCH (15:00)
[2022-01-30] MEDS ORDERED: Magnesium Sulfate 4 GM in Sodium Chloride 0.9% 250 ML 250 ML IVPB SCH (15:15)
[2022-01-30] MEDS ORDERED: Potassium Chloride 20 MEQ TAB PO SCH ×2 (15:15)
[2022-01-30 16:04] VITALS: BMI 23.6
[2022-01-30] MEDS ORDERED: Piperacillin/Tazobactam 3.375 GM in Sodium Chloride 0.9% 100 ML IVPB SCH (18:00)
[2022-01-30 18:48] LABS: Magnesium 2.6 mg/dL (1.6-2.6); Potassium 3.6 mmol/L (3.5-5.1)
[2022-01-30] MEDS: Piperacillin/Tazobactam 3.375 GM in Sodium Chloride 0.9% 100 ML IVPB SCH ×2 (20:36→23:46)
[2022-01-30] MEDS: NS 0.9% w/ 20 MEQ KCL 1,000 ML/1,000 ML BAG IV SCH ×2 (20:36→22:14)
[2022-01-30] MEDS: HumaLOG 300 UNITS/3 ML VIAL SC PRN (20:52)
[2022-01-31 05:33] LABS: #Eosinphils 0.1 thou/uL (0.0-0.7); #Lymphocytes 1.4 thou/uL (1.20-3.40); #Monocytes 0.5 thou/uL (0.11-0.59); #Neutrophils 3.8 thou/uL (1.40-6.50); %Basophils 0.4 % (0.0-1.0); %Eosinophils 2.5 % (0.0-10.0); %Lymphocytes 24.1 % (21.0-51.0); %Monocytes 8.5 % (0.0-10.0); %Neutrophils 64.4 % (42.0-75.0); Mean Corpuscular HGB CONC 35.7 g/dL (32.0-36.0); Mean Corpuscular Hemoglobin 36.1 pg (27.0-31.0); Mean Platelet Volume 7.6 fL (7.4-10.4); Platelet Count 178 thou/uL (130-400); Red Blood Cell (RBC) Count 2.23 mill/uL (4.20-5.40); White Blood Cell (WBC) Count 5.9 thou/uL (4.8-10.8)
[2022-01-31 05:55] LABS: Anion Gap 12 mmol/L (10-20); BUN (Urea Nitrogen) 18 mg/dL (9.8-20.1); Calc. Creatinine Clearance 43 mL/min (70-130); Calcium 6.9 mg/dL (7.8-10.44); Carbon Dioxide 14 mmol/L (23-31); Chloride 115 mmol/L (98-107); Estimated GFR 56; Glucose 194 mg/dL (80-115); Potassium 3.4 mmol/L (3.5-5.1); Sodium 138 mmol/L (136-145)
[2022-01-31] MEDS: HumaLOG 300 UNITS/3 ML VIAL SC PRN ×2 (06:06→15:26)
[2022-01-31] MEDS ORDERED: Potassium Chloride 20 MEQ TAB PO SCH (07:45)
[2022-01-31] MEDS: Piperacillin/Tazobactam 3.375 GM in Sodium Chloride 0.9% 100 ML IVPB SCH ×2 (08:41→16:19)
[2022-01-31] MEDS ORDERED: CALCIUM GLUC 1GM/NS 50ML 1 GM in Premix Bag 1 BAG IVPB SCH (08:45)
[2022-01-31] MEDS ORDERED: Enoxaparin Sodium 40 MG/0.4 ML SYRINGE SC SCH (09:00)
[2022-01-31] MEDS ORDERED: Bisoprolol Fumarate 5 MG TAB PO SCH (09:00)
[2022-01-31] MEDS ORDERED: Atorvastatin Calcium 20 MG TAB PO SCH (09:00)
[2022-01-31] MEDS ORDERED: Loperamide HCl 2 MG CAP PO PRN ×2 (09:54)
[2022-01-31] MEDS: NS 0.9% w/ 20 MEQ KCL 1,000 ML/1,000 ML BAG IV SCH (14:00)
[2022-01-31 15:32] VITALS: BP 109/77; TEMP 97.9
[2022-01-31 15:45] LABS: Campy jejuni + coli by PCR Negative (Negative); STEC Shiga Toxin 1+2 Negative (Negative); Salmonella spp. by PCR Negative (Negative); Shigella spp + EIEC by PCR Negative (Negative)
== END 2022-01-31 16:50 | disposition home or self-care (01) ==
LOC: INTOOBSV 08:31 → 2NO 08:31 → MSONC 22:00
PROVIDERS: ADMIT Internal Medicine; ATTEND Internal Medicine
DX: I12.9 Hypertensive chronic kidney disease with stage 1 through stage 4 chronic kidney disease, or unspecified chronic kidney disease (principal); E11.22 Type 2 diabetes mellitus with diabetic chronic kidney disease; N18.30 Chronic kidney disease, stage 3 unspecified; N17.9 Acute kidney failure, unspecified; E86.0 Dehydration; E87.6 Hypokalemia; E83.42 Hypomagnesemia; E83.51 Hypocalcemia; C50.912 Malignant neoplasm of unspecified site of left female breast; E78.5 Hyperlipidemia, unspecified; K80.20 Calculus of gallbladder without cholecystitis without obstruction; K52.1 Toxic gastroenteritis and colitis; T45.1X5A Adverse effect of antineoplastic and immunosuppressive drugs, initial encounter; Z79.4 Long term (current) use of insulin; Z79.84 Long term (current) use of oral hypoglycemic drugs; Z79.899 Other long term (current) drug therapy
CPT/HCPCS: 80048; 82962 ×2; 83735; 84132; 85025; 87324; 87449; 87505; 96374; G0378; J0610; 36415; 36416; J1650; J1815; J2543; J3475; J3480; J3490; J7050

== ENCOUNTER 2022-02-02 06:59 | Day surgery (SDC) | payer MEDICARE, OTHER ==
[2022-01-29 14:18] VITALS: BMI 19.3
[2022-02-02] MEDS ORDERED: ePHEDrine 50 MG/ML VIAL ONE (11:13)
[2022-02-02] MEDS ORDERED: Dexamethasone 20 MG/5 ML VIAL ONE (11:13)
[2022-02-02] MEDS ORDERED: Ondansetron PF 4 MG/2 ML Vial ONE (11:13)
[2022-02-02] MEDS ORDERED: Lidocaine 1% MPF 2 ML VIAL ONE (11:13)
[2022-02-02] MEDS ORDERED: Phenylephrine 10 MG/ML VIAL ONE (11:13)
[2022-02-02] MEDS ORDERED: PROPOFOL 200 MG/20 ML VIAL ONE (11:13)
[2022-02-02 11:29] LABS: #Eosinphils 0.1 thou/uL (0.0-0.7); #Lymphocytes 1.7 thou/uL (1.20-3.40); #Monocytes 0.5 thou/uL (0.11-0.59); #Neutrophils 3.7 thou/uL (1.40-6.50); %Basophils 0.2 % (0.0-1.0); %Eosinophils 1.2 % (0.0-10.0); %Lymphocytes 28.2 % (21.0-51.0); %Monocytes 8.5 % (0.0-10.0); %Neutrophils 61.9 % (42.0-75.0); Hemoglobin 8.7 g/dL (12.0-16.0); Mean Corpuscular HGB CONC 33.9 g/dL (32.0-36.0); Mean Corpuscular Hemoglobin 34.2 pg (27.0-31.0); Mean Platelet Volume 7.7 fL (7.4-10.4); Platelet Count 202 thou/uL (130-400); RBC Distribution Width 13.5 % (11.5-14.5); Red Blood Cell (RBC) Count 2.55 mill/uL (4.20-5.40)
[2022-02-02 11:52] LABS: Anion Gap 17 mmol/L (10-20); BUN (Urea Nitrogen) 11 mg/dL (9.8-20.1); Calc. Creatinine Clearance 40 mL/min (70-130); Calcium 8.3 mg/dL (7.8-10.44); Carbon Dioxide 14 mmol/L (23-31); Chloride 113 mmol/L (98-107); Estimated GFR 66; Glucose 140 mg/dL (80-115); Potassium 4.3 mmol/L (3.5-5.1); Sodium 140 mmol/L (136-145)
== END 2022-02-02 14:25 | disposition home or self-care (01) ==
LOC: MAMMO 06:59 → SDC 14:25
PROVIDERS: ATTEND Specialist
PROC: 0HBU0ZZ Excision of Left Breast, Open Approach (ICD-10-PCS; principal; 2022-02-02)
PROC: 07B60ZX Excision of Left Axillary Lymphatic, Open Approach, Diagnostic (ICD-10-PCS; 2022-02-02)
DX: C50.412 Malignant neoplasm of upper-outer quadrant of left female breast (principal); N60.82 Other benign mammary dysplasias of left breast; N60.12 Diffuse cystic mastopathy of left breast; E78.00 Pure hypercholesterolemia, unspecified; E11.9 Type 2 diabetes mellitus without complications; I10 Essential (primary) hypertension; Z17.1 Estrogen receptor negative status [ER-]; Z79.4 Long term (current) use of insulin; Z79.84 Long term (current) use of oral hypoglycemic drugs; Z79.899 Other long term (current) drug therapy; Z91.013 Allergy to seafood
CPT/HCPCS: 19281; 19301; 38525; 38900; 76098; 78195; 80048; 85025; A9541; 36415; 88307; 88342; J1100; J2370; J2405; J2704; J3490

== ENCOUNTER 2022-06-01 10:08 | Outpatient (CLI) | payer MEDICARE, OTHER | END 2022-06-01 10:09 | disposition home or self-care (01) | LOC: SCSMRI 10:08 | PROVIDERS: ATTEND Physician Assistant Surgical | DX: C50.919 Malignant neoplasm of unspecified site of unspecified female breast (principal); R51.9 Headache, unspecified; M21.372 Foot drop, left foot; R26.81 Unsteadiness on feet; M47.16 Other spondylosis with myelopathy, lumbar region; I67.82 Cerebral ischemia | CPT/HCPCS: 70553; 72156; 72157 ==

== ENCOUNTER 2023-02-08 13:18 | Outpatient (CLI) | payer MEDICARE, MEDICAID | END 2023-02-08 13:19 | disposition home or self-care (01) | LOC: BICMAMMO 13:18 | PROVIDERS: ATTEND Specialist | DX: C50.412 Malignant neoplasm of upper-outer quadrant of left female breast (principal) | CPT/HCPCS: 77066; G0279 ==

== ENCOUNTER 2024-03-21 12:55 | Outpatient (CLI) | payer MEDICARE, OTHER | END 2024-03-21 12:56 | disposition home or self-care (01) | LOC: BICMAMMO 12:55 | PROVIDERS: ATTEND Specialist | DX: Z08 Encounter for follow-up examination after completed treatment for malignant neoplasm (principal); Z85.3 Personal history of malignant neoplasm of breast | CPT/HCPCS: 77066; G0279 ==